=== PATIENT | male | born 1965 | race Two or more races ===

== ENCOUNTER 2023-08-09 13:05 | Emergency (ER) | payer OTHER ==
[~2023-08-09] VITALS: Ht 170.2 cm; Wt 98.5 kg
[2023-08-09 13:28] VITALS: BP 160/100; PULSE 88; RESP 16; TEMP 98.8; O2SAT 99
[2023-08-09] MEDS: ACETAMINOPHEN 500MG TABLET PO ONE (14:02)
[2023-08-09 14:41] LABS: BASOPHILS % 0.4 % (0.0-2.0); DIFFERENTIAL COMMENT 0; EOSINOPHILS % 0.7 % (0.0-5.0); HEMATOCRIT. 38.9 % (42.0-52.0); HEMOGLOBIN. 12.9 g/dL (14.0-18.0); LYMPHOCYTES % 17.5 % (20.0-50.0); MEAN CORPUSCULAR HEMOGLOBIN 35.2 pg (28.0-32.0); MEAN CORPUSCULAR HGB CONC 33.3 g/dL (31.0-37.0); MEAN CORPUSCULAR VOLUME 105.7 fL (80.0-94.0); MEAN PLATELET VOLUME 8.2 fl (7.4-10.4); MONOCYTES % 10.2 % (2.0-8.0); NEUTROPHILS % 71.2 % (40.0-76.0); PLATELET 82 x1000/uL (130-400); RED BLOOD CELL COUNT 3.68 mill/uL (4.7-6.1); RED CELL DISTRIBUTION WIDTH 15.3 % (11.6-14.6); WHITE BLOOD COUNT 6.3 x1000/uL (4.5-11.0)
[2023-08-09 14:48] LABS: ALANINE AMINOTRANSFERASE 27 IU/L (10-49); ALBUMIN 4.3 g/dL (3.2-4.8); ASPARTATE AMINOTRANSFERASE 41 IU/L (<34); BILIRUBIN TOTAL 0.6 mg/dL (0.1-1.0); CALCIUM 8.4 mg/dL (8.7-10.4); CARBON DIOXIDE 25 mEq/L (21-32); CHLORIDE 107 mEq/L (98-107); CREATININE 0.8 mg/dL (0.6-1.3); GLUCOSE 113 mg/dL (70-105); POTASSIUM 3.9 mEq/L (3.5-5.1); PROTEIN TOTAL 7.7 g/dL (6.0-8.3); SODIUM 141 mEq/L (136-145)
[2023-08-09 15:00] LABS: UREA NITROGEN BLOOD < 5 mg/dL (9-23)
[2023-08-09] MEDS ORDERED: AMOX1TAB16 MT (17:57)
[2023-08-09] MEDS ORDERED: ACET-2708 MT (17:57)
[2023-08-09] MEDS ORDERED: IBUP-2029 MT (18:10)
[2023-08-09] MEDS: AMOXICILLIN/POTASSIUM CLAVULANATE 875/125MG TAB PO ONE (18:39)
== END 2023-08-09 18:49 | disposition home or self-care (01) ==
LOC: ER 13:05
DX: I87.2 Venous insufficiency (chronic) (peripheral) (principal); K52.9 Noninfective gastroenteritis and colitis, unspecified; R20.2 Paresthesia of skin; K08.89 Other specified disorders of teeth and supporting structures
CPT/HCPCS: 36415; 74176; 80053; 85025; 93970; 99284

== ENCOUNTER 2023-08-12 14:26 | Emergency (ER) | payer OTHER ==
[~2023-08-12] VITALS: Ht 175.3 cm; Wt 82.0 kg
[~2023-08-12 14:26] MED LIST: ACET-2708 MT; AMOX1TAB16 MT; IBUP-2029 MT
[2023-08-12 14:29] VITALS: O2SAT 99
[2023-08-12] MEDS: KETOROLAC 60MG/2ML VIAL IM STA (15:45)
[2023-08-12] MEDS: AMOXICILLIN/POTASSIUM CLAVULANATE 875/125MG TAB PO ONE (15:45)
[2023-08-12] MEDS: ONDANSETRON HCL 4MG/2ML INJ IM STA (15:45)
[2023-08-12 16:46] LABS: BASOPHILS % 0.3 % (0.0-2.0); DIFFERENTIAL COMMENT 0; EOSINOPHILS % 0.2 % (0.0-5.0); HEMATOCRIT. 38.5 % (42.0-52.0); HEMOGLOBIN. 12.8 g/dL (14.0-18.0); LYMPHOCYTES % 13.1 % (20.0-50.0); MEAN CORPUSCULAR HEMOGLOBIN 34.5 pg (28.0-32.0); MEAN CORPUSCULAR HGB CONC 33.3 g/dL (31.0-37.0); MEAN CORPUSCULAR VOLUME 103.7 fL (80.0-94.0); MEAN PLATELET VOLUME 7.3 fl (7.4-10.4); MONOCYTES % 8.2 % (2.0-8.0); NEUTROPHILS % 78.2 % (40.0-76.0); PLATELET 112 x1000/uL (130-400); RED BLOOD CELL COUNT 3.71 mill/uL (4.7-6.1); RED CELL DISTRIBUTION WIDTH 15.4 % (11.6-14.6); WHITE BLOOD COUNT 8.4 x1000/uL (4.5-11.0)
[2023-08-12 17:01] LABS: ALANINE AMINOTRANSFERASE 20 IU/L (10-49); ALBUMIN 4.6 g/dL (3.2-4.8); ASPARTATE AMINOTRANSFERASE 32 IU/L (<34); BILIRUBIN TOTAL 0.4 mg/dL (0.1-1.0); CALCIUM 8.3 mg/dL (8.7-10.4); CARBON DIOXIDE 24 mEq/L (21-32); CHLORIDE 108 mEq/L (98-107); CREATININE 0.7 mg/dL (0.6-1.3); ETHANOL BLOOD 246 mg/dL (<10); GLUCOSE 100 mg/dL (70-105); POTASSIUM 3.5 mEq/L (3.5-5.1); PROTEIN TOTAL 7.8 g/dL (6.0-8.3); SODIUM 140 mEq/L (136-145); UREA NITROGEN BLOOD 7 mg/dL (9-23)
[2023-08-12] MEDS: METOCLOPRAMIDE HCL 10MG/2ML VIAL IM ONE (17:34)
[2023-08-12] MEDS ORDERED: GABA-532 MT (18:25)
[2023-08-12] MEDS ORDERED: NAPR-681 MT (18:25)
[2023-08-12] MEDS ORDERED: ONDA4TAB50 PO (18:29)
[2023-08-12 18:30] VITALS: BP 140/85; TEMP 98
[2023-08-12 18:50] VITALS: PULSE 85; RESP 17
[2023-08-12] MEDS: HYDROCODONE/ACETAMINOPHEN 5/325MG TABLET PO NR (18:50)
== END 2023-08-12 19:05 | disposition home or self-care (01) ==
LOC: ER 14:45
DX: K02.9 Dental caries, unspecified (principal); M79.604 Pain in right leg; M79.605 Pain in left leg; G89.29 Other chronic pain; F10.10 Alcohol abuse, uncomplicated; Z79.899 Other long term (current) drug therapy
CPT/HCPCS: 80053; 80320; 85025; 36415; 96372; 99283; J1885; J2765; J2405; G0480